=== PATIENT | female | born 1940 | race Caucasian/White ===

== ENCOUNTER 2020-07-16 15:34 | Emergency (ER) | payer MEDICARE ==
[~2020-07-16] VITALS: Ht 144.8 cm; Wt 55.8 kg
[2020-07-16] MEDS ORDERED: TRAZODONE HCL100 MG PO (16:07)
[2020-07-16] MEDS ORDERED: REMERON15 M1 PO (16:50)
[2020-07-16] MEDS ORDERED: ZESTRIL40 MG PO (16:51)
[2020-07-16] MEDS ORDERED: CITALOPRAM HBR10 MG PO (16:51)
[2020-07-16] MEDS ORDERED: ARICEPT23 MG PO (17:31)
[2020-07-16] MEDS ORDERED: SLEEP AID50 MG PO (17:32)
--- NOTE | 2020-07-16 18:17 | EKG ---
[facility] [address] [facility] [place], [place] [address] Signed Sinus bradycardia with occasional premature ventricular complexes Left axis deviation Inferior infarct , age undetermined Abnormal ECG No previous ECGs available Confirmed by ROCCO FENG DO ([id number]) on 07/16/2020 6:17:45 PM Electronically Signed By: ROCCO FENG DO 07/16/20 1817 PATIENT NAME: IDALIA CHILDS Electrocardiogram DATE OF : 36 PHYSICIAN: ROCCO FENG DO REPORT #: [id number] REPORT IS CONFIDENTIAL AND NOT TO BE RELEASED WITHOUT AUTHORIZATION
== END 2020-07-16 17:50 | disposition home or self-care (01) ==
LOC: ED 15:34
DX: G45.9 Transient cerebral ischemic attack, unspecified (principal); Z79.899 Other long term (current) drug therapy
CPT/HCPCS: 70450; 71045; 80053; 84484; 85025; 85610; 85730; 93005; 93010; 99285-25; Q3014

== ENCOUNTER 2022-07-18 17:08 | Emergency (ER) | payer MEDICARE, OTHER ==
[~2022-07-18] VITALS: Ht 144.8 cm; Wt 55.8 kg
[~2022-07-18 17:08] MED LIST: ARICEPT23 MG PO; CITALOPRAM HBR10 MG PO; REMERON15 M1 PO; SLEEP AID50 MG PO; TRAZODONE HCL100 MG PO; ZESTRIL40 MG PO
[2022-07-18] MEDS ORDERED: IPRAT-ALBUT 0.5-3 ML INH (18:45)
[2022-07-18] MEDS ORDERED: PREDNISONE20 MG PO (18:47)
== END 2022-07-18 19:43 | disposition home or self-care (01) ==
LOC: ED 17:08
DX: J44.1 Chronic obstructive pulmonary disease with (acute) exacerbation (principal); J11.1 Influenza due to unidentified influenza virus with other respiratory manifestations; Z20.822 Contact with and (suspected) exposure to COVID-19; N18.30 Chronic kidney disease, stage 3 unspecified; Z79.899 Other long term (current) drug therapy
CPT/HCPCS: 71045; 87502; 94640; 99285-25; A9270; C9803; J7512; U0003

== ENCOUNTER 2022-07-25 23:08 | Emergency (ER) | payer MEDICARE, OTHER ==
[~2022-07-25] VITALS: Ht 144.8 cm; Wt 65.4 kg
[~2022-07-25 23:08] MED LIST changes: +IPRAT-ALBUT 0.5-3 ML INH; +PREDNISONE20 MG PO
--- OUTSIDE RECORDS SUMMARY | 2022-07-25 23:12 | XMS ---
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 ERobert VISIT COUNT (12 MO.) [address] [place] [address] TOTAL 3 NOTE: Visits indicate total known visits. ED/UCC VISIT TRACKING (12 MO.) 07/25/2022 23:09 [facility] TYPE: Emergency COMPLAINT: - NOT FEELING WELL 07/18/2022 17:08 [facility] [place] TYPE: Emergency COMPLAINT: - SOB DIAGNOSES: - Other nursing home (current) drug therapy - Influenza due to unidentified influenza virus with other respiratory manifestations - Chronic obstructive pulmonary disease with (acute) exacerbation - Shortness of breath - Chronic kidney disease, stage 3 unspecified - Contact with and (suspected) exposure to COVID-19 01/30/2022 12:16 [facility] [place] TYPE: Emergency DIAGNOSES: - Acute cystitis without hematuria - Altered mental status, unspecified - TROUBLE BREATHING POSSIBLE STROKE - Acute bronchospasm INPATIENT VISIT TRACKING (12 MO.) 01/30/2022 12:16 [facility] [place] TYPE: Medical Surgical DIAGNOSES: - Acute bronchospasm - Acute cystitis without hematuria - Altered mental status, unspecified [email or web address]
[2022-07-25] MEDS ORDERED: DONEPEZIL HCL10 MG PO (23:33)
[2022-07-25] MEDS ORDERED: CELEXA10 MG PO (23:34)
[2022-07-25] MEDS ORDERED: TAMIFLU75 MG PO (23:35)
[2022-07-25] MEDS ORDERED: SEROQUEL25 MG PO (23:36)
[2022-07-26] MEDS ORDERED: AMOX TR-K CLV1 EAC1 PO (04:22)
--- NOTE | 2022-07-27 20:35 | EKG ---
[facility] [address] [facility] [place] [address] Signed Normal sinus rhythm Left axis deviation Minimal voltage criteria for LVH, may be normal variant ( R in aVL ) Nonspecific ST and T wave abnormality Abnormal ECG When compared with ECG of 16-JUL-2020 16:04, premature ventricular complexes are no longer present Criteria for Inferior infarct are no longer present Confirmed by Brent Carl MD () on 07/27/2022 8:34:50 PM Electronically Signed By: BRENT CARL MD 07/27/222034 PATIENT NAME: IDALIA CHILDS Electrocardiogram DATE OF : 36 PHYSICIAN: BRENT CARL MD REPORT #: [id number] REPORT IS CONFIDENTIAL AND NOT TO BE RELEASED WITHOUT AUTHORIZATION
--- NOTE | 2022-07-27 20:36 | EKG ---
[facility] [address] [place] [address] Signed Normal sinus rhythm with sinus arrhythmia Left axis deviation Moderate voltage criteria for LVH, may be normal variant ( R in aVL , Pender product ) Possible Lateral infarct , age undetermined Inferior infarct , age undetermined Abnormal ECG When compared with ECG of 25-JUL-2022 23:15, (Unconfirmed) No significant change was found Confirmed by Brent Carl MD () on 07/27/2022 8:36:41 PM Electronically Signed By: BRENT CARL MD 07/27/222035 PATIENT NAME: IDALIA CHILDS Electrocardiogram DATE OF : 36 PHYSICIAN: BRENT CARL MD REPORT #: [id number] REPORT IS CONFIDENTIAL AND NOT TO BE RELEASED WITHOUT AUTHORIZATION
== END 2022-07-26 05:30 | disposition home or self-care (01) ==
LOC: ED 23:08
DX: J44.0 Chronic obstructive pulmonary disease with (acute) lower respiratory infection (principal); J18.9 Pneumonia, unspecified organism; I13.0 Hypertensive heart and chronic kidney disease with heart failure and stage 1 through stage 4 chronic kidney disease, or unspecified chronic kidney disease; I50.9 Heart failure, unspecified; N18.30 Chronic kidney disease, stage 3 unspecified; K21.9 Gastro-esophageal reflux disease without esophagitis; G47.00 Insomnia, unspecified; Z20.822 Contact with and (suspected) exposure to COVID-19; Z79.899 Other long term (current) drug therapy; Z86.73 Personal history of transient ischemic attack (TIA), and cerebral infarction without residual deficits; Z88.8 Allergy status to other drugs, medicaments and biological substances
CPT/HCPCS: 36415; 51701; 71045; 71250; 80053; 81001; 83605; 83880; 84484; 85025; 85379; 85610; 87502; 93005; 93010; 94640; 99285-25; J0696; J1940; J2060; J2930; U0003